=== PATIENT | female | born 1965 | race Caucasian/White ===

== ENCOUNTER → 2016-10-13 | Outpatient (CLI) | payer BC ==
[~2016-10-13] MED LIST: PRENTAB26 PO
[2016-10-13 11:51] LABS: ALB/GLOB RATIO 0.9 (0.9-2); ALKALINE PHOSPHATASE 69 U/L (45-117); ALT/SGPT 17 U/L (12-78); AST/SGOT 12 U/L (15-37); BLOOD UREA NITROGEN 12 mg/dl (7-18); BUN/CREATININE RATIO 16.3 (10-20); CALCIUM 9.4 mg/dl (8.5-10.1); CARBON DIOXIDE 27 mmol/L (21-32); CHLORIDE 106 mmol/L (98-107); CREATININE 0.76 mg/dl (0.60-1.20); GLUCOSE 94 mg/dl (70-99); HDL CHOLESTEROL 58 mg/dl; POTASSIUM 4.1 mmol/L (3.5-5.1); SODIUM 141 mmol/L (136-145); TRIGLYCERIDES 98 mg/dl (0-150); VERY LOW DENSITY LIPOPROT CALC 20 mg/dl
[2016-10-13 11:55] LABS: CHOLESTEROL 207 mg/dl (0-200); CHOLESTEROL/HDL RATIO 3.6; LDL CHOLESTEROL CALCULATED 129 mg/dl
--- NOTE | 2016-10-18 06:24 | CODING QUERY MEDICAL NECESSITY ---
SUPPORTING DIAGNOSIS NEEDED A supporting diagnosis is required for the test/procedure performed on this patient in order for us to be reimbursed by the patient's insurance. Please provide a supporting diagnosis for the following test/procedure listed below next to the test name along with your signature. *If there is no additional diagnosis for this patient that would support the following test/procedure please document that below next to the test/procedure. Test(s)/Procedure(s) that require a supporting diagnosis: * VITAMIN D, 25-HYDROXY DIAGNOSIS: Provider Signature: Date: Thank you Angelique Ryan [employer] Information Management Once completed, please kindly fax back to [phone] For questions please call [phone]
== END | disposition home or self-care (01) ==
LOC: C.LABBC 08:48
PROVIDERS: ATTEND Internal Medicine
DX: J44.9 Chronic obstructive pulmonary disease, unspecified (principal); E55.9 Vitamin D deficiency, unspecified

== ENCOUNTER → 2016-10-13 | Outpatient (CLI) | payer BC ==
--- NOTE | 2016-10-14 15:36 | MAMMOGRAPHY REPORT ---
BILATERAL DIGITAL SCREENING MAMMOGRAM TOMOSYNTHESIS WITH CAD: 10/13/2016 TECHNIQUE: Breast tomosynthesis in addition to standard 2D mammography was performed. Current study was also evaluated with a Computer Aided Detection (CAD) system. COMPAR[facility]: [facility] 12/25/2013, 12/21/2012, 12/20/2011. BREAST COMPOSITION: The tissue of both breasts is heterogeneously dense, which may obscure small ma sses. FINDINGS: No suspicious masses, calcifications, or areas of architectural distortion [facility] There has been no significant interval change compared to prior exams. IMPRESSION: ACR BI-RADS CATEGORY 1: NEGATIVE There is no mammographic evidence of malignancy. A 1 year screening mammogram is recommended. The p atient will receive written notification of the results. Approximately 10% of breast cancers are not detected with mammography. A negative mammographic repor t should not delay biopsy if a clinically suggestive mass is present. Cher Hewitt M.D. ah/:10/14/2016 15:06:45 Planner: Mago DACOSTA(R)(M), [facility] letter sent: Normal 1/2 BI-RADS Code: ACR BI-RADS Category 1: Negative
== END | disposition home or self-care (01) ==
LOC: C.MAMM 10:36
PROVIDERS: ATTEND Internal Medicine
DX: Z12.31 Encounter for screening mammogram for malignant neoplasm of breast (principal)

== ENCOUNTER → 2016-12-23 | Outpatient (CLI) | payer BC | END | disposition home or self-care (01) | LOC: C.PAPS 09:03 | PROVIDERS: ATTEND Obstetrics & Gynecology | DX: Z01.419 Encounter for gynecological examination (general) (routine) without abnormal findings (principal) ==

== ENCOUNTER → 2017-01-04 | Outpatient (CLI) | payer BC | END | disposition home or self-care (01) | LOC: C.LABBC 09:07 | PROVIDERS: ATTEND Obstetrics & Gynecology | DX: E22.1 Hyperprolactinemia (principal) ==

== ENCOUNTER → 2017-10-13 | Outpatient (CLI) | payer OTHER ==
--- NOTE | 2017-10-13 09:41 | DIAGNOSTIC IMAGING REPORT ---
ULTRASOUND OF THE THYROID GLAND CLINICAL HISTORY: Sly's thyroiditis. COMPARISON STUDY: Nuclear thyroid scan dated 02/09/2011. TECHNIQUE: Real-time, grayscale, and color flow sonography of the thyroid gland is performed utilizing a high-frequency linear transducer. Images are reviewed in the transverse and longitudinal planes. FINDINGS: Right lobe: The right lobe of the thyroid gland is normal in size and slightly heterogeneous in echotexture, measuring 5.7 x 1.3 x 1.3 cm. No hyperemia is identified on color imaging. A predominantly cystic nodule in the lower pole measures 1.8 x 1.1 x 1.6 cm. This contains foci of internal colloid versus calcification. Left lobe: The left lobe of the thyroid gland is normal in size and slightly heterogeneous in echotexture, measuring 5.3 x 1.1 x 1.2 cm. No hyperemia is identified on color imaging. Isthmus: The thyroid isthmus appears thickened and measures 0.7 cm in AP diameter. A hypoechoic nodule in the isthmus measures 1.9 x 0.7 x 1.4 cm. IMPRESSION: 1. The thyroid gland is normal in size and slightly heterogeneous in echotexture. No hyperemia is identified on color imaging. 2. There is a predominantly cystic nodule in the right lower pole measuring up to 1.8 cm. This contains foci of internal calcification versus colloid. Fine-needle aspiration is recommended based on morphologic criteria. Electronically signed by: Kenny Christensen M.D. 10/13/2017 9:40 AM Dictated Date/Time: 10/13/2017 9:37 AM
== END ==
LOC: C.ULTRBC 08:52
PROVIDERS: ATTEND Internal Medicine
DX: E06.3 Autoimmune thyroiditis (principal)

== ENCOUNTER → 2017-10-18 | Outpatient (CLI) | payer OTHER ==
[2017-10-18 10:59] LABS: BASO % 0.8 %; BASO ABS # 0.05 K/uL (0-0.2); EOS % 3.4 %; EOS ABS # 0.22 K/uL (0-0.5); HEMOGLOBIN 13.7 g/dL (12.0-16.0); IG# 0.01 K/uL (0.00-0.02); LYMPH % 42.8 %; LYMPH ABS # 2.74 K/uL (1.2-3.4); MEAN CELL VOLUME 87.3 fL (80-100); MEAN CORPUSCULAR HEMOGLOBIN 29.9 pg (25-34); MEAN CORPUSCULAR HGB CONC 34.3 g/dl (32-36); MEAN PLATELET VOLUME 9.6 fL (7.4-10.4); MONO % 5.3 %; MONO ABS # 0.34 K/uL (0.11-0.59); NEUT % 47.5 %; NEUT ABS # 3.04 K/uL (1.4-6.5); PLATELET COUNT 295 K/uL (130-400); RED CELL DISTRIBUTION WIDTH CV 13.7 % (11.5-14.5); RED CELL DISTRIBUTION WIDTH SD 43.5 fL (36.4-46.3)
[2017-10-18 11:24] LABS: ALBUMIN 3.9 gm/dl (3.4-5.0); ALT/SGPT 19 U/L (12-78); AST/SGOT 13 U/L (15-37); BLOOD UREA NITROGEN 14 mg/dl (7-18); CALCIUM 9.4 mg/dl (8.5-10.1); CARBON DIOXIDE 29 mmol/L (21-32); CREATININE 0.75 mg/dl (0.60-1.20); GLUCOSE 94 mg/dl (70-99); POTASSIUM 3.9 mmol/L (3.5-5.1); SODIUM 139 mmol/L (136-145)
[2017-10-18 11:33] LABS: ALKALINE PHOSPHATASE 72 U/L (45-117); CHOLESTEROL 223 mg/dl (0-200); LDL CHOLESTEROL CALCULATED 129 mg/dl; TOTAL PROTEIN 8.3 gm/dl (6.4-8.2)
== END | disposition home or self-care (01) ==
LOC: C.LABBC 08:41
PROVIDERS: ATTEND Internal Medicine
DX: Z00.00 Encounter for general adult medical examination without abnormal findings (principal); E03.9 Hypothyroidism, unspecified; E06.3 Autoimmune thyroiditis; N95.1 Menopausal and female climacteric states; E55.9 Vitamin D deficiency, unspecified; Z13.220 Encounter for screening for lipoid disorders

== ENCOUNTER → 2017-10-30 | Outpatient (CLI) | payer OTHER ==
--- NOTE | 2017-10-30 12:07 | DIAGNOSTIC IMAGING REPORT ---
ULTRASOUND-GUIDED FINE-NEEDLE ASPIRATION OF A RIGHT THYROID NODULE HISTORY: Right thyroid nodule. COMPARISON: Thyroid ultrasound 10/13/2017. PROCEDURE: Written informed consent was obtained. The neck was prepped and draped in the usual sterile fashion. 1% lidocaine was used for local anesthesia. A total of 3 passes using a 25-gauge needle were made through the 1.6 cm right thyroid nodule under ultrasound guidance. Specimens were given to the on-site pathologist who determined adequate tissue for diagnosis. The patient tolerated the procedure well. There were no immediate complications. IMPRESSION: Successful ultrasound-guided fine-needle aspiration of a right thyroid nodule. Electronically signed by: Juan C Castillo M.D. 10/30/2017 12:05 PM Dictated Date/Time: 10/30/2017 12:05 PM
== END | disposition home or self-care (01) ==
LOC: C.ULTR 10:27
PROVIDERS: ATTEND Internal Medicine
DX: E03.9 Hypothyroidism, unspecified (principal); E06.3 Autoimmune thyroiditis; E04.1 Nontoxic single thyroid nodule